=== PATIENT | female | born 1960 | race Two or more races ===

== ENCOUNTER → 2024-09-17 | Outpatient (CLI) | payer BC, SELFPAY ==
[2024-09-17 11:36] LABS: Glucose Estimated Average 217 mg/dL (80-131); Hemoglobin A1C 9.2 % Hgb (4.8-6.0)
[2024-09-17 11:47] LABS: Alanine Aminotransferase 13 U/L (10-49); Albumin, Serum 4.1 gm/dL (3.4-4.8); Albumin/Globulin Ratio 1.2 (1.2-2.2); Alkaline Phosphatase 85 U/L (46-116); Anion Gap 10 (7-16); Aspartate Amino Transferase 13 U/L (0-34); BUN/Creatinine Ratio 40 Ratio (12-20); Bilirubin,Total 0.4 mg/dL (0.3-1.2); Blood Urea Nitrogen 32 mg/dL (9-23); Calcium 9.4 mg/dL (8.3-10.6); Calcium (Corrected) 9.4 mg/dL (8.5-10.1); Carbon Dioxide 25.4 mMol/L (20.0-31.0); Cardiac Risk Estimate 2.4 RATIO (3.7-5.6); Chloride 102 mMol/L (98-107); Cholesterol 144 mg/dL (132-200); Creatinine (Component) 0.8 mg/dL (0.6-1.3); Free T4 (Free Thyroxine) 1.31 ng/dL (0.89-1.76); Globulin 3.3 gm/dL (2.3-3.5); Glucose 227 mg/dL (74-106); HDL Cholesterol 61 mg/dL (40-60); LDL Cholesterol,Calculated 72 mg/dL (0-130); Osmolality,Calculated 287 (275-295); Sodium 137 mMol/L (136-145); Thyroid Stimulating Hormone 1.72 uIU/mL (0.55-4.78); Total Protein 7.4 gm/dL (5.7-8.2); Triglycerides 54 mg/dL (30-150); eGFR > 60 See Note
[2024-09-17 11:54] LABS: Creatinine MALB Rnd Ur 21 mg/dL (30-125); Microalbumin, Random Urine < 3 mg/L (0-300)
== END | disposition home or self-care (01) ==
LOC: COPL 10:10
PROVIDERS: PCP Family Medicine; Referring Provider Family Medicine; Visit Provider Family Medicine
DX: E11.65 Type 2 diabetes mellitus with hyperglycemia (principal); E78.1 Pure hyperglyceridemia; E03.2 Hypothyroidism due to medicaments and other exogenous substances
CPT/HCPCS: 36415; 80053; 80061; 82043; 82570; 83036; 84439; 84443

== ENCOUNTER → 2025-04-04 | Outpatient (CLI) | payer BC, SELFPAY ==
--- NOTE | 2025-04-04 10:03 | XR_ITS ---
Examination: Sinus series 4 views TECHNIQUE: Jay Jay Dewey lateral submentovertex sinus series 4 views Date and time: April, 1017 hours INDICATIONS: Sinus pressure and pain beginning 3 days ago. FINDINGS: Opacity in the frontal ethmoid and maxillary antral air cells No retention cysts No fluid levels No cortical bone destruction IMPRESSION: Chronic sinusitis
--- NOTE | 2025-04-04 10:03 | XR_ITS ---
Examination: AP pelvis 2 views TECHNIQUE: AP pelvis hips in neutral position, AP pelvis hips abduction position Date and time: April 04 2025 1024 hours INDICATIONS: Pelvic pressure 2 months. FINDINGS: Moderate osteopenia Bilateral moderate hip osteoarthritis No hip fractures Prominent greater trochanteric bursitis right hip Bones the pelvis intact IMPRESSION: Bilateral moderate hip osteoarthritis Prominent greater trochanteric bursitis right hip
== END | disposition home or self-care (01) ==
LOC: CDIM 09:24
PROVIDERS: PCP Family Medicine; Referring Provider Family Medicine; Visit Provider Family Medicine
DX: M16.0 Bilateral primary osteoarthritis of hip (principal); M70.61 Trochanteric bursitis, right hip; J32.8 Other chronic sinusitis
CPT/HCPCS: 70220; 72170

== ENCOUNTER → 2025-04-18 | Outpatient (CLI) | payer BC, SELFPAY ==
--- NOTE | 2025-04-18 09:20 | XR_ITS ---
Examination: Transvaginal ultrasound of the pelvis, complete Technique: Transvaginal sonographic images pelvis performed using davey scale imaging Exam date and time: April 18, 2025, 0947 hours INDICATIONS: Pelvic pain beginning 1 month ago FINDINGS: Uterus 6.7 cm endometrial stripe 0.3 cm No uterine mass Right ovary 1.4 cm arterial flow Left ovary 2.0 cm arterial flow No fluid in the cul-de-sac IMPRESSION: No uterine or adnexal mass.
--- NOTE | 2025-04-18 09:20 | XR_ITS ---
Examination: Pelvic ultrasound, transabdominal, complete Technique: Transabdominal ultrasound of the pelvis performed using grayscale imaging Date and time of exam: April 18, 2025, 0940 hours INDICATIONS: Pelvic pain beginning 1 month ago FINDINGS: Uterus 6.2 cm small calcifications throughout the uterus No discrete uterine mass Endometrial stripe 0.5 cm Ovaries obscured by bowel gas IMPRESSION: No discrete uterine mass Borderline thickened endometrial stripe 0.5 cm, recommend 3 to 6-month follow-up transvaginal pelvic sonography
== END | disposition home or self-care (01) ==
LOC: CDIM 09:01
PROVIDERS: PCP Family Medicine; Referring Provider Family Medicine; Visit Provider Family Medicine
DX: N94.89 Other specified conditions associated with female genital organs and menstrual cycle (principal)
CPT/HCPCS: 76830; 76856